=== PATIENT | female | born 1990 | race Caucasian/White ===

== ENCOUNTER 2025-03-26 10:06 | Outpatient (CLI) | payer BC, SELFPAY ==
--- NOTE | ~2025-03-26 | US_ITS ---
Pelvic ultrasound. Clinical History: Secondary amenorrhea Technique: Realtime transabdominal and transvaginal scanning of the pelvis was performed. Color flow Doppler and Doppler spectral analysis were performed. Findings: The uterus is anteverted. The endometrial stripe has a thickness of 19 mm, with probable v nereyda small cystic areas in the endometrium.. No focal mass is identified. The right ovary measures 4.9 x 2.5 x 3.8 cm. Right ovarian cyst measures 2.5 cm in diameter. The left ovary measures 2.4 x 1.5 x 2.5 cm. No significant left ovarian or adnexal mass is seen. There is no evidence of free fluid in the cul de sac. Impression: Prominent endometrial stripe with tiny cystic areas. This may be related to stage in menstrual cycle. 2.5 cm right ovarian cyst. Reviewed, dictated and finalized at [facility]. Impression: Prominent endometrial stripe with tiny cystic areas. This may be related to sta ge in menstrual cycle. 2.5 cm right ovarian cyst.
== END 2025-03-26 10:07 | disposition home or self-care (01) ==
PROVIDERS: PCP Family Medicine; Visit Provider Nurse Practitioner
DX: N85.00 Endometrial hyperplasia, unspecified (principal); N83.201 Unspecified ovarian cyst, right side; N91.1 Secondary amenorrhea
CPT/HCPCS: 76830; 76856